=== PATIENT | female | born 1940 | race Caucasian/White ===

== ENCOUNTER 2023-02-03 18:17 | Inpatient (IN) | payer MEDICARE ==
[2023-02-03 18:53] LABS: #Basophils 0.1 thou/uL (0.0-0.2); #Eosinphils 0.1 thou/uL (0.0-0.7); #Lymphocytes 1.2 thou/uL (1.20-3.40); #Monocytes 0.5 thou/uL (0.11-0.59); %Basophils 0.4 % (0.0-1.0); %Eosinophils 0.3 % (0.0-10.0); %Lymphocytes 7.5 % (21.0-51.0); %Monocytes 3.4 % (0.0-10.0); %Neutrophils 88.4 % (42.0-75.0); Hemoglobin 13.1 g/dL (12.0-16.0); Mean Corpuscular HGB CONC 33.5 g/dL (32.0-36.0); Mean Corpuscular Hemoglobin 29.5 pg (27.0-31.0); Mean Platelet Volume 7.6 fL (7.4-10.4); Platelet Count 232 10x3/uL (130-400); RBC Distribution Width 11.9 % (11.5-14.5); Red Blood Cell (RBC) Count 4.43 mill/uL (4.20-5.40); White Blood Cell (WBC) Count 15.9 10x3/uL (4.8-10.8)
[2023-02-03 19:14] LABS: ALT (SGPT) 14 U/L (8-55); AST (SGOT) 16 U/L (5-34); Albumin 3.6 g/dL (3.4-4.8); Alkaline Phosphatase 76 U/L (40-110); Anion Gap 13 mmol/L (10-20); BUN (Urea Nitrogen) 27 mg/dL (9.8-20.1); Bilirubin, Total 0.5 mg/dL (0.2-1.2); CK (CPK) 73 U/L (29-168); Calc. Creatinine Clearance 0 mL/min (70-130); Calcium 9.2 mg/dL (7.8-10.44); Carbon Dioxide 23 mmol/L (23-31); Chloride 104 mmol/L (98-107); Estimated GFR 73; Globulin 2.9 g/dL (2.4-3.5); Glucose 201 mg/dL (83-110); Potassium 4.7 mmol/L (3.5-5.1); Protein, Total 6.5 g/dL (5.8-8.1); Sodium 135 mmol/L (136-145)
[2023-02-03] MEDS ORDERED: HumaLOG 300 UNITS/3 ML VIAL SC PRN ×2 (21:24)
[2023-02-03] MEDS ORDERED: hydrALAZINE 20 MG/ML VIAL SLOW IVP PRN (21:24)
[2023-02-03] MEDS ORDERED: Ipratropium/Albuterol 3 ML NEB NEB PRN (21:24)
[2023-02-03] MEDS ORDERED: Dextrose 50% Abboject 50 ML SYRINGE SLOW IVP PRN (21:24)
[2023-02-03] MEDS ORDERED: Ondansetron PF 4 MG/2 ML Vial IVP PRN (21:24)
[2023-02-03] MEDS ORDERED: Dextrose 5% in Water 1,000 ML IV PRN (21:24)
[2023-02-03] MEDS ORDERED: Sodium Chloride 0.9% 1,000 ML IV SCH (21:30)
[2023-02-03] MEDS ORDERED: Morphine 2 MG/ML VIAL ONE (21:41)
[2023-02-03] MEDS ORDERED: Acetaminophen 325 MG TAB PO SCH (22:00)
[2023-02-03 22:49] VITALS: BMI 23.8
[2023-02-03] MEDS: Morphine 2 MG/ML VIAL SLOW IVP PRN (23:15)
[2023-02-03] MEDS: Acetaminophen 500 MG TAB PO SCH (23:18)
[2023-02-04] MEDS: Acetaminophen 500 MG TAB PO SCH ×4 (05:55→23:20)
[2023-02-04 06:53] LABS: #Basophils 0.1 thou/uL (0.0-0.2); #Lymphocytes 1.4 thou/uL (1.20-3.40); #Monocytes 0.6 thou/uL (0.11-0.59); #Neutrophils 7.8 thou/uL (1.40-6.50); %Basophils 0.7 % (0.0-1.0); %Eosinophils 0.2 % (0.0-10.0); %Lymphocytes 13.9 % (21.0-51.0); %Monocytes 5.7 % (0.0-10.0); %Neutrophils 79.5 % (42.0-75.0); Hemoglobin 11.8 g/dL (12.0-16.0); Mean Corpuscular HGB CONC 32.7 g/dL (32.0-36.0); Mean Corpuscular Hemoglobin 29.5 pg (27.0-31.0); Mean Corpuscular Volume 90.1 fl (78.0-98.0); Mean Platelet Volume 7.6 fL (7.4-10.4); Platelet Count 237 10x3/uL (130-400); RBC Distribution Width 11.9 % (11.5-14.5); White Blood Cell (WBC) Count 9.8 10x3/uL (4.8-10.8)
[2023-02-04 07:02] LABS: INR-International Normal Ratio 1.1; PTT 31.2 sec (22.9-36.1); Prothrombin Time 14.4 sec (12.0-14.7)
[2023-02-04 07:09] LABS: Anion Gap 9 mmol/L (10-20); BUN (Urea Nitrogen) 19 mg/dL (9.8-20.1); Calc. Creatinine Clearance 58 mL/min (70-130); Carbon Dioxide 25 mmol/L (23-31); Chloride 104 mmol/L (98-107); Potassium 4.2 mmol/L (3.5-5.1); Sodium 134 mmol/L (136-145)
[2023-02-04 07:10] LABS: Calcium 8.5 mg/dL (7.8-10.44); Estimated GFR 84; Glucose 136 mg/dL (83-110)
[2023-02-04] MEDS ORDERED: CEFAZOLIN 2 GM in Sodium Chloride 0.9% 100 ML IVPB SCH (08:45)
[2023-02-04] MEDS: Famotidine/PF 20 mg/2ml Vial SLOW IVP SCH ×2 (09:09→21:18)
[2023-02-04] MEDS: Senokot S 8.6-50 MG TAB PO SCH ×2 (09:18→21:18)
[2023-02-04] MEDS: Polyethylene Glycol 3350 17 GM Packet PO SCH (09:18)
[2023-02-04] MEDS: Morphine 2 MG/ML VIAL SLOW IVP PRN (11:53)
[2023-02-04] MEDS ORDERED: CEFAZOLIN 2 GM VIAL ONE (13:08)
[2023-02-04] MEDS ORDERED: Sodium Chloride 0.9% 100 ML ONE (13:08)
[2023-02-04] MEDS ORDERED: SUGAMMADEX SODIUM 200 MG/2 ML VIAL ONE (13:18)
[2023-02-04] MEDS ORDERED: HYDROmorphone 2 MG/ML VIAL ONE (13:32)
[2023-02-04] MEDS ORDERED: Ondansetron PF 4 MG/2 ML Vial ONE (13:46)
[2023-02-04] MEDS ORDERED: PROPOFOL 200 MG/20 ML VIAL ONE (13:46)
[2023-02-04] MEDS ORDERED: Phenylephrine 10 MG/ML VIAL ONE (13:46)
[2023-02-04] MEDS ORDERED: Dexamethasone 20 MG/5 ML VIAL ONE (13:46)
[2023-02-04] MEDS ORDERED: Esmolol 100 MG/10 ML VIAL ONE (13:46)
[2023-02-04] MEDS ORDERED: Lidocaine 1% PF 5 ML VIAL ONE (13:46)
[2023-02-04] MEDS ORDERED: Labetalol HCl 100 MG/20 ML VIAL ONE (13:46)
[2023-02-04] MEDS ORDERED: Rocuronium Bromide 10 MG/ML (10ML VIAL) ONE (13:46)
[2023-02-04] MEDS ORDERED: HYDROmorphone 2 MG/ML VIAL SLOW IVP PRN (14:57)
[2023-02-04] MEDS ORDERED: Ondansetron HCl/PF 4 MG/2 ML Vial IVP PRN (14:57)
[2023-02-04] MEDS: CEFAZOLIN 2 GM in Sodium Chloride 0.9% 100 ML IVPB SCH (21:21)
[2023-02-05] MEDS: Morphine 2 MG/ML VIAL SLOW IVP PRN (02:43)
[2023-02-05] MEDS: Acetaminophen 500 MG TAB PO SCH (06:00)
[2023-02-05] MEDS: CEFAZOLIN 2 GM in Sodium Chloride 0.9% 100 ML IVPB SCH ×2 (06:01→10:56)
[2023-02-05 06:42] LABS: #Lymphocytes 0.9 thou/uL (1.20-3.40); #Monocytes 0.6 thou/uL (0.11-0.59); #Neutrophils 8.7 thou/uL (1.40-6.50); %Basophils 0.1 % (0.0-1.0); %Eosinophils 0.1 % (0.0-10.0); %Lymphocytes 9.1 % (21.0-51.0); %Monocytes 6.3 % (0.0-10.0); %Neutrophils 84.4 % (42.0-75.0); Hemoglobin 10.7 g/dL (12.0-16.0); Mean Corpuscular HGB CONC 32.7 g/dL (32.0-36.0); Mean Corpuscular Hemoglobin 29.7 pg (27.0-31.0); Mean Corpuscular Volume 90.7 fl (78.0-98.0); Mean Platelet Volume 7.6 fL (7.4-10.4); Platelet Count 222 10x3/uL (130-400); RBC Distribution Width 12.1 % (11.5-14.5); White Blood Cell (WBC) Count 10.3 10x3/uL (4.8-10.8)
[2023-02-05] MEDS ORDERED: Sodium Chloride 0.9% 500 ML IV SCH (08:00)
[2023-02-05] MEDS: Aspirin 81 mg Enteric Coated Tablet PO SCH ×2 (09:03→20:53)
[2023-02-05] MEDS: Polyethylene Glycol 3350 17 GM Packet PO SCH (09:03)
[2023-02-05] MEDS: Senokot S 8.6-50 MG TAB PO SCH ×2 (09:03→20:55)
[2023-02-05] MEDS: Famotidine/PF 20 mg/2ml Vial SLOW IVP SCH ×2 (09:04→20:53)
[2023-02-05] MEDS: Gabapentin 100 MG CAP PO SCH ×2 (10:50→20:53)
[2023-02-05] MEDS: Acetaminophen 325 MG TAB PO SCH ×3 (10:51→23:29)
[2023-02-05] MEDS: Acetaminophen/Codeine 30-300mg Tablet PO SCH ×3 (10:52→23:30)
[2023-02-05] MEDS ORDERED: Hydrocortisone Sod Succ/PF 100 mg/2 ml Vial IVP SCH (15:45)
[2023-02-05] MEDS: Hydrocortisone Sod Succ/PF 100 mg/2 ml Vial IVP SCH (20:56)
[2023-02-06] MEDS: Hydrocortisone Sod Succ/PF 100 mg/2 ml Vial IVP SCH (06:07)
[2023-02-06] MEDS: Acetaminophen 325 MG TAB PO SCH ×3 (06:07→17:02)
[2023-02-06] MEDS: Acetaminophen/Codeine 30-300mg Tablet PO SCH ×3 (06:08→17:03)
[2023-02-06 06:09] LABS: #Lymphocytes 1.1 thou/uL (1.20-3.40); #Monocytes 0.5 thou/uL (0.11-0.59); %Basophils 0.2 % (0.0-1.0); %Eosinophils 0.2 % (0.0-10.0); %Lymphocytes 12.8 % (21.0-51.0); %Monocytes 5.3 % (0.0-10.0); %Neutrophils 81.4 % (42.0-75.0); Hemoglobin 9.6 g/dL (12.0-16.0); Mean Corpuscular HGB CONC 33.6 g/dL (32.0-36.0); Mean Corpuscular Hemoglobin 30.3 pg (27.0-31.0); Mean Corpuscular Volume 90.1 fl (78.0-98.0); Mean Platelet Volume 7.8 fL (7.4-10.4); Platelet Count 209 10x3/uL (130-400); Red Blood Cell (RBC) Count 3.18 mill/uL (4.20-5.40); White Blood Cell (WBC) Count 8.6 10x3/uL (4.8-10.8)
[2023-02-06 06:28] LABS: Anion Gap 8 mmol/L (10-20); BUN (Urea Nitrogen) 14 mg/dL (9.8-20.1); Calc. Creatinine Clearance 55 mL/min (70-130); Calcium 8.4 mg/dL (7.8-10.44); Carbon Dioxide 24 mmol/L (23-31); Chloride 108 mmol/L (98-107); Estimated GFR 79; Glucose 177 mg/dL (83-110); Magnesium 1.8 mg/dL (1.6-2.6); Phosphorus 2.4 mg/dL (2.3-4.7); Potassium 4.4 mmol/L (3.5-5.1); Sodium 136 mmol/L (136-145)
[2023-02-06] MEDS: Gabapentin 100 MG CAP PO SCH ×3 (08:14→20:45)
[2023-02-06] MEDS: Aspirin 81 mg Enteric Coated Tablet PO SCH ×2 (08:14→20:45)
[2023-02-06] MEDS: Senokot S 8.6-50 MG TAB PO SCH ×2 (08:15→20:44)
[2023-02-06] MEDS: Polyethylene Glycol 3350 17 GM Packet PO SCH (08:15)
[2023-02-06] MEDS: Famotidine/PF 20 mg/2ml Vial SLOW IVP SCH (08:15)
[2023-02-06] MEDS: Famotidine 20 MG TAB PO SCH ×2 (08:56→20:45)
[2023-02-07] MEDS: Acetaminophen 325 MG TAB PO SCH ×5 (00:05→23:56)
[2023-02-07] MEDS: Acetaminophen/Codeine 30-300mg Tablet PO SCH ×5 (05:38→23:57)
[2023-02-07] MEDS: Famotidine 20 MG TAB PO SCH ×2 (09:28→21:45)
[2023-02-07] MEDS: Gabapentin 100 MG CAP PO SCH ×3 (09:28→21:44)
[2023-02-07] MEDS: Senokot S 8.6-50 MG TAB PO SCH ×2 (09:28→21:44)
[2023-02-07] MEDS: Aspirin 81 mg Enteric Coated Tablet PO SCH ×2 (09:28→21:44)
[2023-02-07] MEDS: metFORMIN 500 MG TAB PO SCH (09:29)
[2023-02-07] MEDS: Lisinopril 5 MG TAB PO SCH (09:29)
[2023-02-07] MEDS: Polyethylene Glycol 3350 17 GM Packet PO SCH (09:30)
[2023-02-07] MEDS: Escitalopram Oxalate 10 mg Tablet PO SCH (09:32)
[2023-02-07] MEDS: Atorvastatin Calcium 40 MG TAB PO SCH (21:44)
[2023-02-08] MEDS: Acetaminophen/Codeine 30-300mg Tablet PO SCH ×3 (06:21→20:03)
[2023-02-08] MEDS: Acetaminophen 325 MG TAB PO SCH ×3 (06:21→20:03)
[2023-02-08] MEDS: Gabapentin 100 MG CAP PO SCH ×3 (10:18→20:02)
[2023-02-08] MEDS: Aspirin 81 mg Enteric Coated Tablet PO SCH ×2 (10:18→20:03)
[2023-02-08] MEDS: Polyethylene Glycol 3350 17 GM Packet PO SCH (10:18)
[2023-02-08] MEDS: Famotidine 20 MG TAB PO SCH ×2 (10:19→20:04)
[2023-02-08] MEDS: metFORMIN 500 MG TAB PO SCH (10:19)
[2023-02-08] MEDS: Senokot S 8.6-50 MG TAB PO SCH ×2 (10:19→20:04)
[2023-02-08] MEDS: Lisinopril 5 MG TAB PO SCH (10:19)
[2023-02-08] MEDS: Escitalopram Oxalate 10 mg Tablet PO SCH (10:23)
[2023-02-08] MEDS: Atorvastatin Calcium 40 MG TAB PO SCH (20:03)
[2023-02-09] MEDS: Acetaminophen 325 MG TAB PO SCH ×3 (00:10→11:34)
[2023-02-09] MEDS: Acetaminophen/Codeine 30-300mg Tablet PO SCH ×3 (00:10→11:34)
[2023-02-09] MEDS: Polyethylene Glycol 3350 17 GM Packet PO SCH (08:02)
[2023-02-09] MEDS: Escitalopram Oxalate 10 mg Tablet PO SCH (08:02)
[2023-02-09] MEDS: Aspirin 81 mg Enteric Coated Tablet PO SCH (08:03)
[2023-02-09] MEDS: metFORMIN 500 MG TAB PO SCH (08:03)
[2023-02-09] MEDS: Gabapentin 100 MG CAP PO SCH (08:03)
[2023-02-09] MEDS: Lisinopril 5 MG TAB PO SCH (08:03)
[2023-02-09] MEDS: Famotidine 20 MG TAB PO SCH (08:03)
[2023-02-09] MEDS: Senokot S 8.6-50 MG TAB PO SCH (08:04)
[2023-02-09 11:29] VITALS: BP 107/69; TEMP 98.4
== END 2023-02-09 12:53 | disposition home or self-care (01) | DRG 482 ==
LOC: ERS 18:17 → SURG B 20:44
PROVIDERS: ADMIT Surgery; ATTEND Surgery
PROC: 0QH636Z Insertion of Intramedullary Internal Fixation Device into Right Upper Femur, Percutaneous Approach (ICD-10-PCS; principal; 2023-02-04)
DX: S72.141A Displaced intertrochanteric fracture of right femur, initial encounter for closed fracture (principal); I10 Essential (primary) hypertension; E11.9 Type 2 diabetes mellitus without complications; E78.5 Hyperlipidemia, unspecified; F32.A Depression, unspecified; W18.30XA Fall on same level, unspecified, initial encounter; Z79.84 Long term (current) use of oral hypoglycemic drugs; Z79.899 Other long term (current) drug therapy; Z88.2 Allergy status to sulfonamides
CPT/HCPCS: 36415; 36416; 71045; 80048; 80053; 82533; 82550; 83735; 84100; 84484; 85025; 85610; 85730; 93005; 96374; C1713; G0390; J1100; J1170; J1720; J1815; J2272; J2370; J2405; J2704; J3490; J7030; J7050; S0028